=== PATIENT | female | born 1955 | race Caucasian/White ===

== ENCOUNTER 2016-09-03 16:15 | Emergency (ER) | payer OTHER ==
[2016-09-03 16:21] VITALS: BP 185/84; PULSE 83; RESP 17; TEMP 98.2; O2SAT 99
[2016-09-03] MEDS ORDERED: SODIUM CHLOR 0.9% 1000 ML INJ 1,000 ML IV SCH (16:33)
[2016-09-03] MEDS ORDERED: MORPHINE SULFATE 4 MG/ML INJ IV PUSH ONE (16:45)
[2016-09-03] MEDS ORDERED: ONDANSETRON HCL 4 MG/2 ML VIAL IV PUSH ONE (16:45)
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
--- NOTE | 2016-09-03 17:50 | RADRPT ---
EXAM DATE/TIME: 09/03/2016 17:36 [facility] COMPARISON: No previous studies available for comparison. INDICATIONS : Trauma. Laceration right temporal region. Nausea. RADIATION DOSE: 42.88 CTDIvol (mGy) MEDICAL HISTORY : None SURGICAL HISTORY : None. ENCOUNTER: Initial ACUITY: 1 day PAIN SCALE: 2/10 LOCATION: Right temporal TECHNIQUE: Multiple contiguous axial images were obtained of the head. Using automated exposure control and adj ustment of the mA and/or kV according to patient size, radiation dose was kept as low as reasonably a chievable to obtain optimal diagnostic quality images. FINDINGS: CEREBRUM: The ventricles are normal for age. No evidence of midline shift, mass lesion, hemorrhage or acute in farction. No extra-axial fluid collections are seen. POSTERIOR FOSSA: The cerebellum and brainstem are intact. The 4th ventricle is midline. The cerebellopontine angle i s unremarkable. EXTRACRANIAL: The visualized portion of the orbits is intact. SKULL: The calvaria is intact. No evidence of skull fracture. CONCLUSION: No bleed or other acute intracranial abnormality. Reji Zepeda MD on September 03, 2016 at 17:47 Board Certified Radiologist. This report was verified electronically.
[2016-09-03] MEDS ORDERED: ZOFR4TAB PO (17:55)
[2016-09-03] MEDS ORDERED: DICL75TA PO (17:55)
[2016-09-03 18:47] VITALS: BP 168/81
--- NOTE | 2016-09-04 15:39 | EKG ---
Date Performed: 09/03/2016 Time Performed: 16:39:04 PTAGE: 61 years EKG: Sinus rhythm WITH SINUS ARRHYTHMIA MINIMAL ST DEPRESSION BORDERLINE ECG NO PREVIOUS TRACING DOCTOR: Malik Kwok Interpretating Date/Time 09/04/2016 15:34:06
== END 2016-09-03 18:48 | disposition home or self-care (01) ==
LOC: NEPE 16:15
DX: S06.0X0A Concussion without loss of consciousness, initial encounter (principal); R11.0 Nausea; S00.01XA Abrasion of scalp, initial encounter; I49.8 Other specified cardiac arrhythmias; W45.8XXA Other foreign body or object entering through skin, initial encounter; Y93.01 Activity, walking, marching and hiking; Y92.832 Beach as the place of occurrence of the external cause; Y99.8 Other external cause status
CPT/HCPCS: 70450; 93005; 96374; 96375; 99284; J2270; J2405; J7030